=== PATIENT | female | born 1965 | race Hispanic/Latino ===

== ENCOUNTER 2018-01-18 20:39 | Emergency (ER) | payer BC ==
[~2018-01-18] VITALS: Ht 142.2 cm; Wt 85.2 kg
[2018-01-18] MEDS ORDERED: AMITRIPTYLIN10 MG PO (20:51)
[2018-01-18] MEDS ORDERED: METFORMIN HCL1000 MG PO (20:52)
[2018-01-18] MEDS ORDERED: GLYBURIDE5 M1 PO (20:52)
[2018-01-18] MEDS ORDERED: TERBINAFINE250 MG PO (20:53)
[2018-01-18] MEDS ORDERED: MELOXICAM15 MG PO (20:54)
[2018-01-18] MEDS ORDERED: CYCLOBENZAPR5 MG PO (20:55)
[2018-01-18] MEDS ORDERED: LEVOTHYROXIN100 MC1 PO (20:55)
[2018-01-18] MEDS ORDERED: CAPOTEN25 MG PO (20:56)
[2018-01-18 21:33] LABS: HEMATOCRIT 43.2 % (37.0-47.0); HEMOGLOBIN 13.9 g/dl (12.0-16.0); IMMATURE GRANULOCYTES 0.4 % (0.0-1.0); MEAN CELL VOLUME 86.4 fL CALC (80.0-100.0); MEAN CORPUSCULAR HGB 27.8 pG CALC (26.0-32.0); MEAN CORPUSCULAR HGB CONC 32.2 g/L CALC (32.0-36.0); NEUT# 4.11 thou/uL (2.00-7.15); RED CELL DISTRI WIDTH 13.4 % (11.5-15.5)
[2018-01-18 21:34] LABS: URINE BILIRUBIN - DIPSTICK NEGATIVE (NEGATIVE); URINE BLOOD DIPSTICK NEGATIVE (NEGATIVE); URINE COLOR YELLOW; URINE GLUCOSE - DIPSTICK >=1000 mg/dL (NEGATIVE); URINE KETONE NEGATIVE (NEGATIVE); URINE LEUK ESTERASE NEGATIVE (NEGATIVE); URINE NITRITE - DIPSTICK NEGATIVE (Negative); URINE PROTEIN - DIPSTICK NEGATIVE (NEG-TRACE); URINE SPECIFIC GRAVITY <=1.005; URINE UROBILINOGEN - DIPSTICK 0.2 E.U./dL (0.2)
[2018-01-18 21:39] LABS: URINE CLARITY CLEAR
[2018-01-18 21:45] LABS: ALKALINE PHOSPHATASE 77 u/l (38-126); ANION GAP 18 (6-22 (CALC)); BILIRUBIN, TOTAL 0.2 mg/dL (0.0-1.4); BUN 18 mg/dL (7-17); BUN/CREATININE RATIO 38 (12-20 (CALC)); CARBON DIOXIDE 26 mmol/l (22-30); CHLORIDE 101 mmol/l (95-108); CREATININE 0.5 mg/dL (0.5-1.0); GFR > 60 ML/MIN (>=60 (CALC)); GFR FOR AFR.AMER. > 60 ML/MIN (>=60 (CALC)); POTASSIUM 4.2 mmol/l (3.5-5.1); SGOT/AST 18 u/l (14-36); SGPT/ALT 35 u/l (9-52); SODIUM 141 mmol/l (137-146)
[2018-01-18] MEDS ORDERED: GENTAMICIN15 ML/BTL OD (22:33)
[2018-01-18 22:56] VITALS: BP 146/80
== END 2018-01-18 22:56 | disposition home or self-care (01) | DRG 305 ==
LOC: ED 20:39
PROVIDERS: Emergency Medicine
DX: I10 Essential (primary) hypertension (principal); H11.31 Conjunctival hemorrhage, right eye; E11.9 Type 2 diabetes mellitus without complications

== ENCOUNTER 2019-07-09 22:41 | Emergency (ER) | payer BC ==
[~2019-07-09] VITALS: Ht 142.2 cm; Wt 83.4 kg
[~2019-07-09 22:41] MED LIST: AMITRIPTYLIN10 MG PO; CAPOTEN25 MG PO; CYCLOBENZAPR5 MG PO; GENTAMICIN15 ML/BTL OD; GLYBURIDE5 M1 PO; LEVOTHYROXIN100 MC1 PO; MELOXICAM15 MG PO; METFORMIN HCL1000 MG PO; TERBINAFINE250 MG PO
[2019-07-09 23:14] LABS: URINE BILIRUBIN - DIPSTICK NEGATIVE (NEGATIVE); URINE BLOOD DIPSTICK TRACE-LYSED (NEGATIVE); URINE COLOR YELLOW; URINE GLUCOSE - DIPSTICK >=1000 mg/dL (NEGATIVE); URINE KETONE NEGATIVE (NEGATIVE); URINE LEUK ESTERASE NEGATIVE (NEGATIVE); URINE NITRITE - DIPSTICK NEGATIVE (Negative); URINE PH 6.5 (4.5-8.0); URINE PROTEIN - DIPSTICK NEGATIVE (NEG-TRACE); URINE SPECIFIC GRAVITY <=1.005; URINE UROBILINOGEN - DIPSTICK 0.2 E.U./dL (0.2)
[2019-07-09 23:38] LABS: HEMATOCRIT 45.5 % (37.0-47.0); HEMOGLOBIN 14.5 g/dl (12.0-16.0); IMMATURE GRANULOCYTES 1.4 % (0.0-5.0); MEAN CELL VOLUME 85.7 fL CALC (80.0-100.0); MEAN CORPUSCULAR HGB 27.3 pG CALC (26.0-32.0); MEAN CORPUSCULAR HGB CONC 31.9 g/L CALC (32.0-36.0); NEUT# 0.9 thou/uL (2.00-7.15); RED BLOOD COUNT 5.31 mill/uL (4.20-5.60); RED CELL DISTRI WIDTH 13.7 % (11.5-15.5)
[2019-07-09 23:49] LABS: ALBUMIN 4.4 g/dL (3.2-5.0); ALKALINE PHOSPHATASE 87 u/l (38-126); AMYLASE 46 u/l (30-110); ANION GAP 15 (6-22 (CALC)); BILIRUBIN, TOTAL 0.3 mg/dL (0.0-1.4); BUN 20 mg/dL (7-17); BUN/CREATININE RATIO 31 (12-20 (CALC)); CARBON DIOXIDE 30 mmol/l (22-30); CHLORIDE 95 mmol/l (95-108); CREATININE 0.6 mg/dL (0.5-1.0); GFR > 60 ML/MIN (>=60 (CALC)); GFR FOR AFR.AMER. > 60 ML/MIN (>=60 (CALC)); LIPASE 118 u/l (23-300); POTASSIUM 4.4 mmol/l (3.5-5.1); SGOT/AST 24 u/l (14-36); SODIUM 136 mmol/l (137-146); TOTAL PROTEIN 7.4 g/dL (6.3-8.2)
[2019-07-10] MEDS ORDERED: PHENERGAN25 MG/TAB PO (00:41)
[2019-07-10] MEDS ORDERED: TORADOL PO (00:41)
[2019-07-10 01:02] VITALS: BP 138/71
== END 2019-07-10 01:02 | disposition home or self-care (01) | DRG 392 ==
LOC: ED 22:41
PROVIDERS: Family Medicine
DX: K52.9 Noninfective gastroenteritis and colitis, unspecified (principal); E11.9 Type 2 diabetes mellitus without complications; I10 Essential (primary) hypertension; Z79.84 Long term (current) use of oral hypoglycemic drugs